=== PATIENT | female | born 1940 | race Caucasian/White ===

== ENCOUNTER 2017-02-13 18:25 | Emergency (ER) | payer MEDICARE ==
[~2017-02-13] VITALS: Ht 157.5 cm; Wt 90.9 kg
[~2017-02-13 18:25] MED LIST: ATEN50TA PO; CHOL100045 PO; FLUO20CA25 PO; HYDR-4003 PO; LIDO15CR9 TP; LORA0.5T PO; METHADONE PO; OMEP20CA11 PO; POTA99TA21 PO; SIMV20TA4 PO; SPIR25TA3 PO
[2017-02-13 18:41] VITALS: BP 179/79; PULSE 66; RESP 18; O2SAT 98
--- NOTE | 2017-02-13 19:45 | ED.REPORT ---
HPI-General Illness Date of Service February 13, 2017 ED Provider: Garett Bautista DO A 76 year old female with a history of depression, anxiety, panic attacks, spinal stimulator, hyperlipidemia, hypertension, hyperparathyroidism and right thyroidectomy presents to the ED complaining of anxiety and suicidal ideation. 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 She feels that she "can't control things" and "can't control the pain." The pt has been prescribed medication for her neuropathy pain, but these do not relieve her symptoms. She also admits to "hot and cold flashes," but denies nausea, vomiting or diarrhea. The pt took a Percocet three hours ago with minimal relief. Nursing Notes Stated Complaint: THYROID PROBELM Chief Complaint: General Complaint Nursing Notes Reviewed: Yes Allergies: Coded Allergies: duloxetine HCl (Verified Allergy, Severe, severe depression, 07/08/16) fentanyl (Verified Allergy, Severe, Anaphylaxis, 05/06/16) Fentanyl patch only amoxicillin trihydrate (Verified Allergy, Unknown, UNKNOWN, 07/08/16) clavulanic acid (Verified Allergy, Unknown, UNKNOWN, 07/08/16) amitriptyline (Verified Adverse Reaction, Severe, weakness, sweats, ) gabapentin (Verified Adverse Reaction, Severe, gas, 07/08/16) niacin (Verified Adverse Reaction, Severe, itching, flushing, 07/08/16) topiramate (Verified Adverse Reaction, Severe, severe depression, 07/08/16) Uncoded Allergies: Nonsteroidal Anti-Inflammatory Agts (Allergy, Unknown, UNKNOWN, 07/08/16) Scheduled ([Methadone ]) 15 MG PO HS Atenolol (Atenolol) 50 Mg Tablet 50 MG PO DAILY Cholecalciferol (Vitamin D3) (Vitamin D) 1,000 Unit Capsule 2,000 UNIT PO DAILY Fluoxetine (Fluoxetine) 20 Mg Capsule 20 MG PO DAILY Omeprazole (Omeprazole) 20 Mg Capsule.dr 20 MG PO BID Potassium Gluconate (Potassium) 99 Mg Tablet 99 MG PO DAILY Simvastatin (Simvastatin) 20 Mg Tablet 20 MG PO DAILY Spironolactone (Spironolactone) 25 Mg Tablet 25 MG PO DAILY Scheduled PRN Hydrocodone-Acetaminophen 5-325 mg (Hydrocodone-Acetaminophen 5-325 mg) 1 Each Tablet 1 TABLET PO BID PRN PRN For Pain Lidocaine (Lidocaine) 5 % Cream..g. 15 GM TP Q4-6H PRN PRN PRN Lorazepam (Lorazepam) 0.5 Mg Tablet 0.5 MG PO BID PRN PRN For Anxiety General Time Seen by MD: 19:44 Chief Complaint Other (Anxiety) Hx Obtained From: Patient Arrived By: Walk-in Sudden in Onset?: No Recent Healthcare: No recent hospitalization, Recent doctor visit Past Medical History Past Medical History Hyperparathyroidism Back injury Cataracts Thyroid issues Anxiety Panic attacks Reports: GERD, Hyperlipidemia, Hypertension Reports: Depression Past Surgical History Cholecystectomy Incisional hernia surgery Hysterectomy Rotator cuff Sigmoid colectomy with bilateral oopherectomy Partial thyroidectomy Cateract surgery Back surgery Smoking History Former Smoker Social History Alcohol Use: "Social" Drug Use: THC Other Social History: Good social support, , Local resident Ambulatory Status Independent Review of Systems Full Review of Systems Respiratory: Denies: Non-productive cough, Shortness of breath Musculoskeletal: Reports: Extremity pain Skin: Denies Rash Psychiatric: Reports: Suicidal ideation Complete sys rev & neg: except as marked. Physical Exam Vital Signs Vital Signs Date Time Temp Pulse Resp B/P Pulse Ox O2 Delivery O2 Flow Rate FiO2 02/13/17 22:49 36.4 68 18 139/54 98 Room Air 02/13/17 18:41 36.4 66 18 179/79 98 Room Air Initial VS: Reviewed General/Constitutional: Awake, Alert Behavior: Positive: Tearful Head / Eyes: Atraumatic, Normocephalic, PERRL, EOMI ENT: Atraumatic, Airway patent, Mucous membranes moist Neck: Atraumatic, Supple, Full range of motion Respiratory / Chest: Atraumatic, Breath sounds NL, Breath sounds = bilat, No respiratory distress Cardiovascular: Heart rate NL, Regular rhythm, Heart sounds NL Abdomen: Atraumatic, Soft, Non-tender Back: Atraumatic, Full range of motion Upper Extremities Upper Extremity / MS: Atraumatic, Full range of motion Lower Extremity / Pelvis / MS: Atraumatic, Full range of motion Skin: Atraumatic, Color NL, No rash, Warm, Dry Neurologic: Oriented X3, Speech NL, No motor deficits, No sensory deficits Psychiatric: Cognitive function NL Abnormal Mood/Affect: Positive: Anxious Suicidal Interpretation & Diagnostics Lab Results Interpretation Result Diagram: 02/13/17202402/13/172024 Test 02/13/17 20:25 02/13/17 20:55 White Blood Count 7.4th/mm3 (3.8-10.1) Red Blood Count 4.77mil/mm3 (3.90-5.20) Hemoglobin 14.9g/dL (12.0-15.6) Hematocrit 44.4% (35.0-46.0) Mean Corpuscular Volume 93.1fL (81-100) Mean Corpuscular Hemoglobin 31.2pg (27.0-35.0) Mean Corpuscular Hemoglobin Concent 33.6% (32.0-37.0) Red Cell Distribution Width 13.2% (12.3-15.4) Platelet Count 139bil/L (150-400) Neutrophils (%) (Auto) 44.1% (40-74) Lymphocytes (%) (Auto) 44.3% (14-46) Monocytes (%) (Auto) 10.2% (4-12) Eosinophils (%) (Auto) 1.2% (0-5) Basophils (%) (Auto) 0.1% (0-3) Sodium Level 143mEq/L (134-144) Potassium Level 4.4mEq/L (3.5-5.2) Chloride Level 103mEq/L (97-108) Carbon Dioxide Level 24mmol/L (18-29) Blood Urea Nitrogen 16mg/dL (8-27) Creatinine 0.67mg/dL (0.57-1.00) Estimat Glomerular Filtration Rate 123mL/min (>59) Glucose Level 84mg/dL (60-99) Calcium Level 10.3mg/dL (8.5-10.1) Total Bilirubin 0.3mg/dL (0.0-1.2) Aspartate Amino Transf (AST/SGOT) 18U/L (0-50) Alanine Aminotransferase (ALT/SGPT) 19U/L (0-32) Alkaline Phosphatase 97U/L (25-165) Troponin T 0.010ug/L (0.0-0.011) Total Protein 6.5g/dL (6.4-8.4) Albumin 4.0g/dL (3.4-5.0) Thyroid Stimulating Hormone (TSH) 0.576uIU/mL (0.450-4.500) Hold Boggs Top Tube Received (Received) Alcohols < 10mg/dL (0-10) Urine Color Yellow (YELLOW) Urine Appearance Clear (CLEAR,HAZY) Urine pH 5.5 (5.0-8.0) Urine Specific [place] 1.020 (1.003-1.035) Urine Protein Negativemg/dL (NEG,TRACE) Urine Glucose (UA) Negativemg/dL (NEGATIVE) Urine Ketones Negativemg/dL (NEGATIVE) Urine Occult Blood Negative (NEGATIVE) Urine Nitrite Negative (NEGATIVE) Urine Bilirubin Negative (NEGATIVE) Urine Urobilinogen Normalmg/dL (NORMAL) Urine Leukocyte Esterase Small (NEGATIVE) Urine RBC 0-2/hpf (0-2) Urine WBC 11-50/hpf (0-5) Urine Epithelial Cells Occasional/hpf (NONE-MOD) Urine Crystals None seen (NONE SEEN) Urine Bacteria Few/hpf (NONE-FEW) Urine Hyaline Casts None/lpf (NONE) Urine Granular Casts None seen (NONE SEEN) Urine Waxy Casts None seen (NONE SEEN) Urine Red Blood Cell Casts None seen (NONE SEEN) Urine White Blood Cell Casts None seen (NONE SEEN) Urine Mucus None seen (None Seen) Urine Trichomonas None seen (NONE SEEN) Urine Yeast None (NONE SEEN) Urinalysis Comment None Pulse Oximetry Interpretation Pulse Oximetry Interpretation: 98% on room air Pulse Oximetry: Pulse Ox normal ECG Interpretation ECG Interpretation: normal sinus rhythm with a rate of 65 no signs of hypocalcemia or hypercalcemia Time: 20:11 Interpreted by: ED physician Re-Eval/Medical Decision Med Decision/Clinical Course 76-year-old female presents profoundly anxious. She is anxious about her medical conditions upcoming surgery. She did not have any specific suicidal ideations but she felt like she needed to consult with a mental health professional. Our medical record librarian evaluated and discussed things with her. She is very pleased after this. She felt ready to go home. She is not suicidal. Anxiety symptoms were adequately treated with a dose of Ativan. She had foot pain that is chronic and she is given a dose of Percocet. She was observed. No signs were as her depression. She felt much better. She is medically stable for discharge. She is of sound mind and body. She did not wish to be admitted. I will place and a short course of Xanax that she is to take when she has extreme anxiety about her surgery. Routine sedative warnings given. Evidently she has had this in the past she states she did well with it. She is discharged with her in stable condition. Source of Hx: Old records Time of Eval: 22:34 Patient Status: Condition improved Re-Evaluation/Progress Note: Pt rechecked, who is feeling significantly better. The diagnosis and plan for discharge are discussed. The pt understands and agrees with the plan. All questions are addressed at this time. Consultation : Call Returned at: 20:28 Alarm Mechanism Adjuster: Agrees with eval, Agrees with plan Note: Spoke with social media senior associate regarding pt's case. bakery worker recommends discharge with follow up. Counseled Regarding: Diagnosis, Lab results, Need for follow-up, When/why to return to ED Discharge & Departure Primary Impression: Reaction, situational, acute, to stress Additional Impression: Anxiety Disposition: Home Discharge Condition All VS Reviewed: Yes Condition: Stable Patient Instructions: Generalized Anxiety Disorder (GEN) Additional Instructions: Keep your surgical follow up appointment. Stay with your at all times. Return if you feel like you are having any suicidal ideations or any new or worsening symptoms. You may take one Xanax every 8 hours as needed for anxiety. Do not drive or drink alcohol or take any other sedating medications while taking the Xanax. The Xanax is sedating so do not take it if you are up and about as it may increase your risk of falling. Do not take any opiates while taking the Xanax. Do not drive tonight. Return if an problems or any new or worsening symptoms. Your calcium levels are at the upper limits of normal. This needs to be followed up closely this week. Increase the natural fluids in your diet. Referrals: Gómez Owens MD (PCP) Sandroibdav Attestation Portions of this note were transcribed by José Sparrow. I, Dr. Bautista personally performed the history, physical exam and medical decision-making; I reviewed and confirmed the accuracy of the information in the transcribed note. Signed by: Sheldon Berger, 02/13/17 and 2301. copies to: Gómez Owens MD, Todd P DO February 13, 2017 19:45 JOSÉ SPARROW February 13, 2017 20:02
[2017-02-13] MEDS ORDERED: LORazepam 1 mg Tablet PO ONE (20:35)
[2017-02-13 20:51] LABS: BASOPHILS % (AUTO) 0.1 % (0-3); EOSINOPHILS % (AUTO) 1.2 % (0-5); MONOCYTES % (AUTO) 10.2 % (4-12); Mean Corpuscular Hemoglobin 31.2 pg (27.0-35.0); Mean Corpuscular Volume 93.1 fL (81-100); NEUTROPHILS % (AUTO) 44.1 % (40-74); Platelet Count 139 bil/L (150-400)
[2017-02-13 21:51] LABS: APPEARANCE,URINE CLEAR (CLEAR,HAZY); COLOR,URINE YELLOW (YELLOW); OCCULT BLOOD,URINE NEGATIVE (NEGATIVE); UROBILINOGEN,URINE NORMAL (NORMAL)
[2017-02-13 21:52] LABS: PH,URINE 5.5 (5.0-8.0)
[2017-02-13] MEDS ORDERED: oxyCODONE-Acetamin 5-325 mg Tablet PO ONE (22:05)
[2017-02-13 22:49] VITALS: BP 139/54; PULSE 68; RESP 18; O2SAT 98
[2017-02-15] MEDS ORDERED: LEVO75TA36 PO (15:33)
[2017-02-15] MEDS ORDERED: TAPE100T5 PO (15:33)
[2017-02-15] MEDS ORDERED: SPIR25TA3 PO (15:33)
[2017-02-15] MEDS ORDERED: HYDR-4003 PO (15:33)
[2017-02-15] MEDS ORDERED: CHOL10008 PO (15:33)
[2017-02-15] MEDS ORDERED: CYAN500 PO (15:33)
[2017-02-15] MEDS ORDERED: LISI10TA PO (15:33)
[2017-02-15] MEDS ORDERED: LIDO5CRE17 TOPICAL (15:33)
[2017-02-15] MEDS ORDERED: OMEP20TA86 PO (15:33)
[2017-02-15] MEDS ORDERED: CALC-952 PO (15:33)
[2017-02-15] MEDS ORDERED: FLUO20TA28 PO (15:33)
[2017-02-15] MEDS ORDERED: SIMV20TA4 PO (15:33)
[2017-02-15] MEDS ORDERED: GABA-500 PO (15:33)
== END 2017-02-13 22:49 | disposition home or self-care (01) ==
LOC: SED 18:25
DX: F43.0 Acute stress reaction (principal); F41.9 Anxiety disorder, unspecified; E78.5 Hyperlipidemia, unspecified; I10 Essential (primary) hypertension; E21.3 Hyperparathyroidism, unspecified; K21.9 Gastro-esophageal reflux disease without esophagitis; Z87.891 Personal history of nicotine dependence; Z88.1 Allergy status to other antibiotic agents; Z88.8 Allergy status to other drugs, medicaments and biological substances
CPT/HCPCS: 36415; 80053; 81001; 81002; 84443; 84484; 85025; 93005; 99284; G0480

== ENCOUNTER 2017-02-22 08:34 | Day surgery (SDC) | payer MEDICARE ==
--- NOTE | 2017-02-15 16:22 | PCM.ANEPRE ---
Anesthesia Pre-Op Review Anesthesia Recommendations: Proceed with Procedure Chart Reviewed by: Andrews Dent MD, MD February 15, 2017 16:22
[2017-02-22] VITALS (9 sets, daily range): BP systolic 144–186; BP diastolic 52–84; PULSE 63–106; RESP 13–20; O2SAT 95–100
[~2017-02-22] VITALS: Ht 157.5 cm; Wt 97.6 kg
[2017-02-22] MEDS: Lactated Ringer's 1,000 ML IV SCH ×3 (05:00→11:29)
[~2017-02-22 08:34] MED LIST changes: -ATEN50TA PO; +CALC-952 PO; -CHOL100045 PO; +CHOL10008 PO; +CYAN500 PO; -FLUO20CA25 PO; +FLUO20TA28 PO; +GABA-500 PO; +LEVO75TA36 PO; -LIDO15CR9 TP; +LIDO5CRE17 TOPICAL; +LISI10TA PO; -LORA0.5T PO; +LORazepam 1 mg Tablet PO PRN; -METHADONE PO; -OMEP20CA11 PO; +OMEP20TA86 PO; -POTA99TA21 PO; +TAPE100T5 PO
[2017-02-22] MEDS ORDERED: Propofol 10,000 mCg/mL 20 mL Inj ONE (08:35)
[2017-02-22] MEDS ORDERED: Dexamethasone 4 mg/mL Inj ONE (08:35)
[2017-02-22] MEDS ORDERED: Succinylcholine Chloride 20 mg/mL 5 mL Inj ONE (08:35)
[2017-02-22] MEDS ORDERED: fentaNYL-PF 50 mCg/mL 2 mL Inj ONE (08:35)
[2017-02-22] MEDS ORDERED: Ondansetron 2 mg/mL 2 mL Inj ONE (08:35)
--- NOTE | 2017-02-22 11:16 | PCM.HPANE ---
Patient Data Date of Service: February 22, 2017 (1111) Surgeon Admitting Provider: Attending Provider:Aren Thornton MD Primary Care Physician:Gómez Owens MD Other Provider:Shiv Thurston Anesthesia Reason for Visit Primary Hyperparathyroidism, Mulitnodular Goiter Ht/WT & BMI Height (Feet): 5 Height (Inches): 2.00 Weight (Kilograms): 97.500 Body Mass Index 39.00 Allergies Coded Allergies: duloxetine HCl (Verified Allergy, Severe, severe depression, 02/22/17) fentanyl (Verified Allergy, Severe, Anaphylaxis, 02/22/17) Fentanyl patch only amoxicillin trihydrate (Verified Allergy, Unknown, UNKNOWN, 02/22/17) clavulanic acid (Verified Allergy, Unknown, UNKNOWN, 02/22/17) amitriptyline (Verified Adverse Reaction, Severe, weakness, sweats, ) gabapentin (Verified Adverse Reaction, Severe, gas, 07/08/16) niacin (Verified Adverse Reaction, Severe, itching, flushing, 07/08/16) topiramate (Verified Adverse Reaction, Severe, severe depression, 07/08/16) metoprolol (Verified Adverse Reaction, Intermediate, BRADYCARDIA, 02/22/17) Past Anesthesia History Anesthesia History: Positive for:: Anesthesia Reactions (hx of awake intubation ), Difficult Intubation (hx of awake intubation "crooked esophagus") , Denies:: Abnormal Airway, Fam Anesthesia Reaction, Fam Malignant Hypertherm, Malignant Hyperthermia Diabetes History Hx Diabetes?: No Current Bedside Blood Glucose: 98 MRSA MRSA: No Medications Hypertension Medication: Yes Home Meds Incl Beta Rafael: No Reported Medications Cholecalciferol (Vitamin D3) (Vitamin D3)1,000 Unit Tab.chew2,000 Unit PO DAILY 02/15/17 Cyanocobalamin (Vitamin B12)500 Mcg [id number] Mcg PO DAILY 02/15/17 Spironolactone 25 Mg Qlmveu59 Mg PO DAILY #30 TABLET Ref 0 02/15/17 Simvastatin 20 Mg Gevyuf22 Mg PO HS Ref 0 02/15/17 Omeprazole 20 Mg Tablet.dr20 Mg PO DAILY 02/15/17 Tapentadol (Nucynta)100 Mg Czdvzn139 Mg PO BID 02/15/17 Lisinopril 10 Mg Sgmktq79 Mg PO DAILY 30 Days Ref 0 02/15/17 Lidocaine Cream 5 Gm Cream..g.1 Applic TOPICAL PRN For Pain 02/15/17 Levothyroxine (Levoxyl)75 Mcg Pganvp59 Mcg PO DAILY Ref 0 02/15/17 Hydrocodone-Acetaminophen 5-325 mg 1 Each Tablet1 Tablet PO Q12H PRN For Pain Ref 0 02/15/17 Fluoxetine 20 Mg Eavpvt61 Mg PO DAILY Ref 0 02/15/17 Calcium Carbonate/Vitamin D3 (Calcium 500 mg Chewable Tablet)1 Each Tab.chew1 Each PO DAILY 02/15/17 Discontinued Reported Medications Gabapentin 100 Mg Jekrfpe652 Mg PO TID 30 Days Ref 0 02/15/17 Cholecalciferol (Vitamin D3) (Vitamin D)1,000 Unit Capsule2,000 Unit PO DAILY # 1 BOTTLE Ref 0 07/08/16 Spironolactone 25 Mg Jigxgc62 Mg PO DAILY #30 TABLET Ref 0 07/08/16 Simvastatin 20 Mg Qoqnti96 Mg PO DAILY Ref 0 07/08/16 [Methadone ] No Conflict Check15 Mg PO HS 07/08/16 Hydrocodone-Acetaminophen 5-325 mg 1 Each Tablet1 Tablet PO BID PRN For Pain Ref 0 07/08/16 Atenolol 50 Mg Drypql42 Mg PO DAILY #30 TABLET Ref 0 07/08/16 Fluoxetine 20 Mg Alqfpju36 Mg PO DAILY Ref 0 05/05/16 Lidocaine 5 % Cream..g.15 Gm TP Q4-6H PRN PRN 05/05/16 Lorazepam 0.5 Mg Tablet0.5 Mg PO BID PRN For Anxiety Ref 0 05/05/16 Omeprazole 20 Mg Capsule.dr20 Mg PO BID Ref 0 05/05/16 Potassium Gluconate (Potassium)99 Mg Wzrjhf74 Mg PO DAILY 05/05/16 History History of ENT Problems?: Yes HEENT History: Positive for:: Cataracts (bilateral) Difficult Intubation (hx of awake intubation "crooked esophagus") Sinus Problem Denies:: Abnormal Airway Dysphagia Hearing Problem Denture Type: Full- Upper Teeth Condition: Missing Teeth Hx of Heart Problems?: Yes Cardiovascular History: Positive for:: Chest Pain (2003,2004,2009,2013 DEEMED NON-CARDIAC) Edema (feet) Hypertension Denies:: AICD Cardiac Surgery Congestive Heart Failure Heart Murmur Irregular Heartbeat Pacemaker Thrombophlebitis Valvular Heart Disease Hx of Respiratory Problem?: Yes Respiratory History: Denies:: Asthma COPD Emphysema Oxygen Administration Tuberculosis Use of C-PAP Machine (melanie+ refuses cpap sleep study 08/2015-10/2015) Hx Neurologic Problems?: Yes Neurological History: Positive for:: Headaches Denies:: Alzheimer's Disease CVA Dementia Dizziness Multiple Sclerosis Parkinson's Disease Seizures Hx of GI Problems?: Yes Other GI Pertinent History: hx of colectomy Hx of Problems?: Yes Genitourinary History: Denies:: Kidney Stones Urinary Tract Infection Female Hx: Positive for:: Problems with Breasts? (hx of benign bx) Denies:: Currently Endometriosis Pelvic Inflammatory Skin History: Positive for:: History Skin Disorders? (eczema) Denies:: Pressure Ulcers Hx Musculoskeletal Problems?: Yes Musculoskeletal History: Positive for:: Back Injury (prior hx back surgery, currently has SCS in place) Degenerative Joint Joint Replacement (right tka) Musculoskeletal Trauma (prior hx rotator cuff) Hx of Psycho/Social Problems?: Yes Psycho Social History: Positive for:: Anxiety (hx of panic attacks) Hx Depression Denies:: Bipolar Disorder Hx Surgeries?: Yes (lami, colectomy, hyst, héctor, total knee, thyroid lobectomy , scs) Hx Any Other Health Problems?: Yes Other History: Positive for:: Endocrine Disease Hospitalization Thyroid Disease (current admission problem-completion thyroid, parathyroid) Denies:: Cancer History Blood Transfusions: Denies:: Blood Transfuse Reaction Blood Transfusions Hx Diabetes: NoBedside Blood Glucose: 98 Hx Alcohol Use: YesAlcoholic Drinks Per Day: occasional- not for last monthHx Substance Use: No Smoking Status: Former Smoker Have You Smoked inLast 12 mo: No Stop/Bang S-Snoring: Do You Snore Loudly: Yes T-Tired: feel tired, fatigued: Yes O-Obsered: Observed not breath: No P-Blood Pressure: treated: Yes B- Body Mass Index > 35 kg/m2: Yes A- Age over 50: Yes N- Neck Large Circumference: Yes G- Gender Male: No MELANIE Total Score: 6 Risk Assessment Category Category 1A: Patient has history of documented sleep apnea, and HAS NOT received any narcotic, sedative or anesthesia administration during this stay. Category 1B: Patient has history of documented sleep apnea, and HAS received any narcotic , sedative or anesthesia administration during this stay Category 2: Patient has SUSPECTED Obstructive Sleep Apnea, and HAS received any narcotic , sedative or anesthesia administration during this stay. Category 3: Patient has SUSPECTED Obstructive Sleep Apnea and HAS NOT received narcotic, sedative or anesthesia administration during this stay. Category 4: Outpatient in Procedural Areas with known sleep apnea or who screen positive for High Risk via the STOP/BANG questionnaire. Exam Exam Vital Signs Vital Signs Date Time Temp Pulse Resp B/P Pulse Ox O2 Delivery O2 Flow Rate FiO2 02/22/17 08:55 35.1 63 18 144/52 95 Room Air General Appearance: Alert, Oriented X3, Cooperative HEENT/AIRWAY: MP 2 Lungs: Clear to Auscultation Heart: Exam Unremarkable Meds/Labs/Diagnostics Admission Meds Current Medications Lactated Ringer's (Lr) 1,000 ml @ 120 mls/hr Q8H20M IV Last administered on t 09:07; Start 02/22/17 at 05:00; Stop 02/22/17 at 13:19 Bedside Blood Glucose: 98 Plan Impression Patient chart reviewed, patient interviewed and anesthestic plan with risks, benefits, and alternatives discussed, and informed consent obtained. NPO per Anesth. Guidelines: Yes ASA Physical Status: ASA3 Severe Disease Anesthetic Plan: GA Bene/Risks/Altern/Consents: Yes HP Complete Prior to Induction: Yes Rashid Coleman MD February 22, 2017 11:16
[2017-02-22] MEDS ORDERED: Bupivacaine-MPF 0.5% 30 mL Inj INFILTRATE ONE (12:00)
[2017-02-22] MEDS ORDERED: MetoCLOpramide 5 mg/mL 2 mL Inj IVPUSH PRN (14:55)
[2017-02-22] MEDS ORDERED: Ondansetron 2 mg/mL 2 mL Inj IVPUSH PRN ×2 (14:55→15:30)
--- NOTE | 2017-02-22 15:09 | PCM.ANEP1 ---
Post Anesthesia PACU Phase 1 Assessment Vital Signs Vital Signs Date Time Temp Pulse Resp B/P Pulse Ox O2 Delivery O2 Flow Rate FiO2 02/22/17 08:55 35.1 63 18 144/52 95 Room Air Anesthetic Administered: GA Level of Alertness: Awake, talking MARCUM's with Equal Strength: Yes Pain: No Nausea or Vomiting: No CV Function & Hydration Stable: Yes Airway Device: NONE Oxygen Delivery: Simple Mask Lungs: Clear to Auscultation Dermatome Level: Full Sensation Summary UNEVENTFUL GA PACU Phase 2 Assessment Complications: No Follow up Care: No Patient Instructions Provided: N/A Rashid Coleman MD February 22, 2017 15:09
[2017-02-22] MEDS ORDERED: Lactated Ringer's 500 ML IV PRN (15:29)
[2017-02-22] MEDS ORDERED: Lactated Ringer's 1,000 ML IV SCH (15:29)
[2017-02-22] MEDS ORDERED: EPHEDrine Sulfate 50 mg/mL Inj IVPUSH PRN (15:30)
[2017-02-22] MEDS ORDERED: HYDROmorphone 1 mg/mL Inj IVPUSH PRN (15:30)
[2017-02-22] MEDS ORDERED: Dexamethasone 4 mg/mL Inj IVPUSH PRN (15:30)
[2017-02-22] MEDS ORDERED: fentaNYL-PF 50 mCg/mL 2 mL Inj IVPUSH PRN (15:30)
[2017-02-22] MEDS ORDERED: Phenylephrine 10,000 mCg/mL Inj IVPUSH PRN (15:30)
--- NOTE | 2017-02-22 15:32 | PCM.SURGOP ---
Surgical Operative Report Date of Service: February 22, 2017 Pre Operative Diagnosis Hyperparathyroidism, multinodular goiter, residual right thyroid tissue after previous right thyroid lobectomy Post Operative Diagnosis Same Procedure: Completion thyroidectomy, parathyroidectomy exploration Surgeon and Mobile Ui/Ux Designer: Surgeon: Aren Thornton MD Assistants: Milly Ortiz M.D.; Otis Peterson PA-C Indication for Procedure 76-year-old woman whose main complaint was peripheral neuropathy. She also has undergone what was described as a right thyroid lobectomy in the past for a goiter. She had mild hyperparathyroidism, with a PTH of 66, and a calcium of 10.3. Her imaging studies were inconclusive regarding abnormal parathyroid glands. She did have significant residual right thyroid tissue superiorly measuring 2.7 cm. She had a 3.4 cm thyroid nodule in the isthmus, that underwent fine-needle aspiration, which came back benign, [place] II. She had compressive symptoms in the neck. After discussion of risks and benefits, she agreed to proceed with completion thyroidectomy and parathyroid exploration. Findings: A parathyroid adenoma was not identified. There was very dense scar tissue throughout the entire neck, including on the left side. Completion thyroidectomy was performed, including removal of all remaining right superior thyroid tissue. Both recurrent laryngeal nerves were visualized and preserved. Normal parathyroid glands were visualized on the left side both superiorly and inferiorly, which were preserved. Despite extensive exploration, and adenoma on the right side or elsewhere could not be identified. Procedure Details After smooth induction of general endotracheal anesthesia, she was placed in the modified beachchair position with the neck extended, and was prepped and draped in wide sterile fashion. A procedural pause was performed according to the SCOAP checklist, and all were found to be in agreement. Her prior transverse neck incision was reopened sharply, and dissection was carried down through the subcutaneous tissue until the platysma muscle was divided. Subplatysmal skin flaps were raised superiorly and inferiorly. The median raphae was difficult to identify, because there was dense scar tissue. The right strap muscles were elevated off the thyroid isthmus. This was very adherent, and there was no visible normal tissue planes on the right. I elected to explore the left side first in that setting, given that she had compressive symptoms on the left, and the plan was to perform completion left thyroid lobectomy with isthmusectomy. The left strap muscles were sequentially elevated off the underlying left thyroid lobe and isthmus. This dissection was also quite difficult because of adhesions. Ultimately, the left middle thyroid vein was identified, and divided with the LigaSure device. A blood sample was drawn from the left internal jugular vein, and sent for PTH, which came back at 57. The left superior pole was taken down gradually by dividing the branches of the left superior thyroid artery and vein with the LigaSure device. Inferiorly, there was an exophytic nodule, which actually became disconnected from the remainder of the left thyroid lobe during retraction, so the ultimate pathology specimen will appear somewhat piecemeal. The left inferior parathyroid gland was visualized, along with its blood supply coming off the inferior thyroid artery. This was normal, and it was preserved. The left ligament of [place] was divided with the LigaSure device. The left recurrent laryngeal nerve was visualized and preserved. Superiorly, the left superior parathyroid gland was visualized, which looked completely normal, so it was left alone. The thyroid isthmus was dissected free from the peritracheal tissues anteriorly. The left thyroid lobe and isthmus were dissected off the trachea, oriented with suture, and sent for permanent pathology. Another PTH sample was drawn and sent, which came back at 69. In the meantime, the right side of the neck was explored. The right recurrent laryngeal nerve was visualized and preserved. The right inferior thyroid artery was visualized. The right inferior parathyroid gland could not be visualized. Adhesions superiorly were very dense. Ultimately, the right strap muscles were divided superiorly, and this allowed visualization of the remaining right superior thyroid tissue. The superior pole was taken down with the LigaSure device. All remaining right thyroid tissue was removed, down to the area of previous clips marking the area of division. That tissue was sent for permanent pathology. There was no evidence of an obvious parathyroid gland attached to any of the thyroid tissue that was removed. The entire tracheoesophageal groove was evaluated, the esophagus was bluntly retracted anteriorly, and the retroesophageal space was evaluated, the thymic tissue was evaluated, the carotid sheath was inspected on both sides but not opened, and ultimately a parathyroid adenoma could not be definitively identified. Because of the dense scar tissue in the neck, I felt that further dissection was quite dangerous, and elected to stop. Hemostasis was adequate. The strap muscles were reapproximated with interrupted 3-0 Vicryl suture. The platysma muscle was reapproximated with interrupted 3-0 Vicryl suture. The skin incision was closed with a running 4-0 Monocryl subcuticular stitch. Dermabond was applied to the skin as a dressing. At the end of the case all needle and sponge counts were correct 2. She was awakened from anesthesia without difficulty, and taken to the recovery room in satisfactory condition, having tolerated the procedure well. Her voice was normal in the recovery room. Another PTH sample was drawn in the recovery room. Complications There were no periprocedural complications identified. Surgical Specimen Removed: Yes Specimen sent to Pathology: Yes Surgical Specimen description: Left thyroid lobe and isthmus. Remaining right thyroid tissue. Anesthetic Plan: GA Grafts, Implants: None Output, Estimated Blood Loss: 30 Blood Administration during hankins: No Drains: None Catheters: None copies to: Curtis Rose MD; Gómez Owens MD, Joshua D MD February 22, 2017 15:32
--- NOTE | 2017-02-22 17:56 | NUR ---
ADMIT Patient came up to room via OR [facility] at 1555 and transferred onto bed with minimal assistance. Patient denied chest pain, SOB, N, V, and stated "I don't have much pain I just feel bit hoarse, but I expect that". Patient was on room air, fluids were running, but patient was saline locked. Assisted to bedside commode to void one person assist, and was unsteady on her feet stating she felt a little dizzy. Assisted patient back to bed, educated patient on keeping the HOB at 30 degrees and reporting to staff if she starts to feel any swelling in her neck. Incision is well approximated and Dermabond is present. Patients belongings came up with patient from OR and patients is in room. Clear liquid diet initiated for patient and is being tolerated well. SCD's placed on patient, jong alarm in place, call light within reach, patient oriented to room. Hourly rounding in place.
--- NOTE | 2017-02-22 18:35 | NUR ---
Meds from Home Sent down 2 medications from home to pharmacy, B-12 and Nucynda. Patient states they both help with neuropathy.
[2017-02-22] MEDS: HYDROcodone-APAP 5-325 mg Tablet PO PRN (21:11)
[2017-02-23 00:32] VITALS: BP 132/72; PULSE 79; RESP 20; O2SAT 95
[2017-02-23 01:23] LABS: APPEARANCE,URINE CLEAR (CLEAR,HAZY); COLOR,URINE STRAW (YELLOW); OCCULT BLOOD,URINE NEGATIVE (NEGATIVE); PH,URINE 6.5 (5.0-8.0); UROBILINOGEN,URINE NORMAL (NORMAL)
--- NOTE | 2017-02-23 04:11 | NUR ---
Neuropathy/Pain Pt has neuropathy in hands and severe in feet at baseline. Pt reports that she takes B12 2000mcg BID and it has almost eliminated the neuropathy. Current orders not reflecting. Phoned customer operations intern surgeon and he ordered according to Pt current meds. Administered and Pt had relief and was able to sleep. She stated the morphine that was given earlier was not effective. She denies pain to throat incision, states only her throat is scratchy. CMS intact, Chvosteks sign negative.
[2017-02-23] MEDS: HYDROcodone-APAP 5-325 mg Tablet PO PRN (04:27)
[2017-02-23] MEDS ORDERED: Pantoprazole 40 mg ER24 Tablet PO SCH (06:30)
--- NOTE | 2017-02-23 06:49 | PCM.DISURG ---
Surgical Discharge Instruction Date of Service February 23, 2017 Dates of Hospitalization Date of Hospital Admission Providers Admitting Physician: Primary Care Physician: Gómez Owens MD Attending Physician: Aren Thornton MD Discharge Diagnosis Discharge Diagnosis multinodular goiter, hyperparathyroidism Post Operative diagnosis Same Diet Discharge Diet: No restrictions Activity Discharge Activity-General: No restrictions Dressing and Incisional Care Dressing Instructions: Dermabond will peel off gradually Hygiene: May shower Follow Up Plan Follow Up Plan with Dr. Thornton in surgery clinic in 2 weeks Call your provider for: Fever, Discharge @ incision, pus discharge Aren Thornton MD February 23, 2017 06:48
[2017-02-23] MEDS ORDERED: HYDR-4003 PO (06:50)
[2017-02-23] MEDS ORDERED: LEVO125T6 PO (06:50)
[2017-02-23] MEDS ORDERED: TAPENTADOL 100 MG PO SCH (08:30)
[2017-02-23 09:18] VITALS: BP 144/77; PULSE 79; RESP 20; O2SAT 96
--- NOTE | 2017-02-23 09:44 | PROG NOTE ---
[address] [address] PROGRESS NOTE PATIENT: CHRISTIANE STEEN : 1940 MR#: [id number] ADMIT: 02/22/2017 JOB ID: [id number] DATE: 02/23/2017 SUBJECTIVE: The patient is seen in followup. She had a good night overall and does not complain of any pain whatsoever in the neck. Her main complaint overnight with neuropathy in her feet, relieved by taking vitamin B12. She was on liquids overnight and did not try swallowing any solid food. OBJECTIVE: Temperature 36.9, pulse 79, blood pressure 132/72, saturation 95% on room air. General: She is resting in bed in no acute distress. Neck is soft with minimal amount of bruising of the transverse neck incision. Her voice is normal. ASSESSMENT AND PLAN: A 76-year-old woman, postoperative day one, status post completion thyroidectomy after previous right partial thyroid lobectomy, and parathyroid exploration without identification of a parathyroid adenoma. She is doing well clinically. She can be discharged to home today. Her dose of levothyroxine has been increased to 125 mcg daily. She will follow up with me in surgery clinic in two weeks.
--- NOTE | 2017-02-23 10:11 | NUR ---
Discharge Pt DC'ing home with her via private vehicle. Pain adequately controlled in neck with safe swallow observed. Neuropathy pain is also adequately controlled with Vit B12 and Vicodin. Home medications returned from pharmacy; confirmed [facility] in [place] had RX for Levothyroxine. Pt will call to schedule her follow up appointment with Dr. Thornton.
--- NOTE | 2017-02-23 12:32 | PCM.DC.SUR ---
Discharge Summary Date of Service: Date of Hospital Admission: 02/22/2017 Date of Operation(s): 02/22/2017 Date of Discharge: February 23, 2017 at 10:15 Diagnosis at Time of Discharge Primary diagnoses: 1. Hyperparathyroidism, primary 2. Multinodular goiter, 3. Residual right thyroid tissue after previous right thyroid lobectomy Other chronic conditions: 1. Anxiety 2. Benign hepatitis 3. Carpal tunnel syndrome 4. Cataract 5. Chronic back pain 6. Colon adenoma 7. Constipation 8. Diverticulosis 9. Dyspepsia 10. Eczema of the hands 11. Gastritis 12. GERD 13. Glaucoma 14. Hyperlipidemia 15. Hypertension 16. Osteomyelitis of the hip 17. Rosacea 18 morbid obesity, BMI 39.4 19. Obstructive sleep apnea 20. Anxiety and depression 21. Postmenopausal atrophic vaginitis 22. Chronic pain syndrome 23. Neuropathies Problems: Operation 1. Completion thyroidectomy 2. Parathyroidectomy exploration Brief History and Physical: The patient is a 76-year-old woman whose main complaint was peripheral neuropathy. She also had undergone what was described as a right thyroid lobectomy in the past for a goiter. She had mild hyperparathyroidism, with a PTH of 66, and a calcium of 10.3. Her imaging studies were inconclusive regarding abnormal parathyroid glands. She did have significant residual right thyroid tissue superiorly measuring 2.7 cm. She had a 3.4 cm thyroid nodule in the isthmus, that underwent fine-needle aspiration, which came back benign, [place] II. She had compressive symptoms in the neck. Consultants: None Hospital Course: The patient was admitted and underwent the above-mentioned operation without complication. She was stable for discharge the following morning. At the time of discharge her neck wound was dry and intact, and she had no neck edema. She had no voice changes. Postsurgical PTH was 56. Pathology: Pending Disposition: The patient was discharged home on her first postsurgical day. Follow-up Plan: She will follow-up in the office with Dr. Thornton in 2 weeks. Calcium Carbonate/Vitamin D3 (Calcium 500 mg Chewable Tablet) 1 Each Tab.chew 1 EACH PO DAILY (Reported) Cholecalciferol (Vitamin D3) (Vitamin D3) 1,000 Unit Tab.chew 2,000 UNIT PO DAILY (Reported) Cyanocobalamin (Vitamin B12) 500 Mcg Tablet 500 MCG PO DAILY (Reported) Fluoxetine (Fluoxetine) 20 Mg Tablet 20 MG PO DAILY (Reported) Hydrocodone-Acetaminophen 5-325 mg (Hydrocodone-Acetaminophen 5-325 mg) 1 Each Tablet 1 TABLET PO Q12H PRN PRN For Pain (Reported) Hydrocodone-Acetaminophen 5-325 mg (Hydrocodone-Acetaminophen 5-325 mg) 1 Each Tablet 1-2 TABLET PO Q4H PRN PRN For Moderate Pain Levothyroxine (Levothyroxine) 125 Mcg Tablet 125 MCG PO DAILYAC Lidocaine Cream (Lidocaine Cream) 5 Gm Cream..g. 1 APPLIC TOPICAL PRN For Pain ( Reported) Lisinopril (Lisinopril) 10 Mg Tablet 10 MG PO DAILY (Reported) Omeprazole (Omeprazole) 20 Mg Tablet.dr 20 MG PO DAILY (Reported) Simvastatin (Simvastatin) 20 Mg Tablet 20 MG PO HS (Reported) Spironolactone (Spironolactone) 25 Mg Tablet 25 MG PO DAILY (Reported) Tapentadol (Nucynta) 100 Mg Tablet 100 MG PO BID (Reported) copies to: Gómez Owens MD, Fred H PA-C February 23, 2017 12:32
--- NOTE | 2017-02-25 10:29 | PATH ---
SURGICAL PATHOLOGY Attending Physician:Marylin Walker CASE STATUS: Signed Out PATIENT NAME: CHRISTIANE STEEN PID: [id number] : 1940 DATE COLLECTED:02/22/2017 00:00 SPECIMEN: 1: Thyroid, Lobectomy 2: Thyroid, Lobectomy CLINICAL HISTORY: MULTI NODULAR GOITER PRIMARY HYPERPARATHYROIDISM, PLEASE CHECK FOR PARATHYROIDS ON ALL SPECIMEN 1). LEFT THYROID LOBE AND ISTHMUS 2). REMAINING RIGHT THYROID TISSUE FINAL DIAGNOSIS: 1. 2.LEFT THYROID LOBE AND ISTHMUS: MULTIPLE BENIGN HYPERPLASTIC NODULES PRESENT WITHIN BOTH SPECIMENS. NEGATIVE FOR EVIDENCE OF PARATHYROID TISSUE. NEGATIVE FOR ATYPIA AND MALIGNANCY. ICD10 E04.2 GROSS DESCRIPTION: The specimens are received in formalin, labeled with the patient's name, and sublabeled as the following: (1) left thyroid lobe and ithmus; (2) remaining right thyroid tissue. (1) The specimen consists of a thyroid gland lobe (35.4 g, largest intact piece-6.5 x 6.0 x 2.3 cm) received in multiple pieces. The specimen cannot be oriented. The parenchyma has been replaced with diffuse variegated semi-translucent nodular (0.1 cm-1.5 cm) tissue. No normal parenchyma is identified. Ink code: blue-capsule. Section code: (1A-1D) largest piece, serially sectioned, quality assurance representative; (1E, 1F) one quality assurance representative from each smaller piece. Additional sections: (1G-1J) thyroid tissue, quality assurance representative. 02/24/17 (2) The specimen consists of thyroid tissue (3.9 g, 3.0 x 2.0 x 1.0 cm). The specimen cannot be oriented. The tissue is variegated semi-translucent and nodular (0.1 cm-1.0 cm). A scant amount of normal parenchyma is identified. Ink code: blue-capsule. Section code: (2A) thyroid tissue, serially sectioned, quality assurance representative. 02/23/17 Additional sections: (2B-2D thyroid tissue. Specimen entirely submitted. 02/24/17 MICRO DESCRIPTION: Sections from parts 1 and 2 are from thyroid tissue. There are multiple hyperplastic nodules present in both specimens. In the material from part 1 there is one area in which the periphery of one of the hyperplastic nodules consists of very small follicular type cells. These have uniform small dark nuclei, and since parathyroid tissue can have this appearance in some situations, immunohistochemistry is performed. Immunohistochemistry Results: TTF-1:Cells in question are positive, thus indicating their thyroid origin Synaptophysin: Cells in question are negative, thus ruling out parathyroid tissue There is no evidence for malignancy or significant atypia in any of the material. This test was developed and its performance characteristics determined by [facility]. It has not been cleared or approved by the U. [place]. Food and Drug Administration. The FDA has determined that such clearance or approval is not necessary. This test is used for clinical purposes. It should not be regarded as investigational or for research. ICD-9 CODES: CPT CODES: 1: 16115, 70944, 36103 2: 76179 Electronically Signed Out Roman See MD [facility] Pathology [facility] [address], [place] [address] Technical component performed at [facility], [address], [place], [address]
== END 2017-02-23 10:15 | disposition home or self-care (01) ==
LOC: SAS 08:34 → OSC 15:58 → SAS 02-23 10:15
PROVIDERS: ATTEND Student in an Organized Health Care Education/Training Program
DX: E21.0 Primary hyperparathyroidism (principal); E05.20 Thyrotoxicosis with toxic multinodular goiter without thyrotoxic crisis or storm; I10 Essential (primary) hypertension; E78.5 Hyperlipidemia, unspecified; G47.33 Obstructive sleep apnea (adult) (pediatric); M54.16 Radiculopathy, lumbar region; F41.8 Other specified anxiety disorders; G89.4 Chronic pain syndrome; K21.9 Gastro-esophageal reflux disease without esophagitis; E66.9 Obesity, unspecified; Z68.38 Body mass index [BMI] 38.0-38.9, adult; Z86.010 Personal history of colon polyps; Z87.891 Personal history of nicotine dependence
CPT/HCPCS: 36415; 60260; 60500; 81000; 83970; J0330; J1100; J2250; J2270; J2405; J3010; J7120

== ENCOUNTER 2017-03-07 15:57 | Emergency (ER) | payer MEDICARE ==
[~2017-03-07] VITALS: Ht 157.5 cm; Wt 90.9 kg
[~2017-03-07 15:57] MED LIST changes: -GABA-500 PO; +LEVO125T6 PO; -LEVO75TA36 PO; -LORazepam 1 mg Tablet PO PRN
[2017-03-07 15:59] VITALS: BP 145/61; PULSE 68; RESP 20; O2SAT 99
--- NOTE | 2017-03-07 16:59 | ED.REPORT ---
HPI-General Illness Date of Service Mar 07, 2017 ED Provider: Dr. Chiu 76 y/o female with a hx of neuropathy, hyperlipidemia, hypertension, hyperparathyroidism and right thyroidectomy presents to the ED complaining of fatigue, onset three days ago. She states "I just have no energy at all". The pt had a thyroid surgery two weeks ago. Associated sx include "freezing chills" , fever, malaise, cough accompanied by chest pain, mild headache and decreased appetite. She denies vomiting, diarrhea, dysuria and neck pain post surgery. Nursing Notes Stated Complaint: WEAKNESS AND COUGH/SENT FROM URGENT CARE Chief Complaint: General Complaint Nursing Notes Reviewed: Yes Allergies: Coded Allergies: duloxetine HCl (Verified Allergy, Severe, severe depression, 02/22/17) fentanyl (Verified Allergy, Severe, Anaphylaxis, 02/22/17) Fentanyl patch only amoxicillin trihydrate (Verified Allergy, Unknown, UNKNOWN, 02/22/17) clavulanic acid (Verified Allergy, Unknown, UNKNOWN, 02/22/17) amitriptyline (Verified Adverse Reaction, Severe, weakness, sweats, ) gabapentin (Verified Adverse Reaction, Severe, gas, 07/08/16) niacin (Verified Adverse Reaction, Severe, itching, flushing, 07/08/16) topiramate (Verified Adverse Reaction, Severe, severe depression, 07/08/16) metoprolol (Verified Adverse Reaction, Intermediate, BRADYCARDIA, 02/22/17) Scheduled Calcium Carbonate/Vitamin D3 (Calcium 500 mg Chewable Tablet) 1 Each Tab.chew 1 EACH PO DAILY Cholecalciferol (Vitamin D3) (Vitamin D3) 1,000 Unit Tab.chew 2,000 UNIT PO DAILY Cholecalciferol (Vitamin D3) (Vitamin D3) 1,000 Unit Tab.chew 2,000 UNIT PO DAILY Fluoxetine (Fluoxetine) 20 Mg Tablet 20 MG PO DAILY Levothyroxine (Levoxyl) 75 Mcg Tablet 75 MCG PO DAILY Lisinopril (Lisinopril) 10 Mg Tablet 10 MG PO DAILY Methadone (Methadone) 5 Mg Tablet 5 MG PO Q12HR Omeprazole (Omeprazole) 20 Mg Tablet.dr 20 MG PO BID Simvastatin (Simvastatin) 20 Mg Tablet 20 MG PO HS Spironolactone (Spironolactone) 25 Mg Tablet 25 MG PO DAILY Scheduled PRN Alprazolam (Alprazolam) 0.5 Mg Tablet 0.5 MG PO BID PRN PRN For Anxiety Hydrocodone-Acetaminophen 5-325 mg (Hydrocodone-Acetaminophen 5-325 mg) 1 Each Tablet 1 TABLET PO Q12HR PRN PRN For Pain Lidocaine Cream (Lidocaine Cream) 5 Gm Cream..g. 1 APPLIC TOPICAL PRN For Pain General Time Seen by MD: 16:58 Chief Complaint Other (Fatigue) Hx Obtained From: Patient Arrived By: Walk-in Sudden in Onset?: No (3) Onset Occurred: 3 days ago Symptom Duration: Since onset Location: : Head Quality: Painful Radiation: : Does not radiate Severity: Current: Mild Severity: Maximum: Mild Recent Healthcare: Recent doctor visit, Previous surgery Similar Sx Previous: No Past Medical History Past Medical History Hyperparathyroidism Back injury Cataracts Thyroid issues Anxiety Panic attacks Reports: GERD, Hyperlipidemia, Hypertension Reports: Depression Past Surgical History Cholecystectomy Incisional hernia surgery Hysterectomy Rotator cuff Sigmoid colectomy with bilateral oopherectomy Partial thyroidectomy Cateract surgery Back surgery Smoking History Former Smoker Social History Alcohol Use: "Social" Drug Use: THC Other Social History: Good social support, , Local resident Ambulatory Status Independent Review of Systems Reports: Decreased appetite Full Review of Systems Constitutional: Reports: Chills, Fatigue, Fever, Malaise Respiratory: Reports: Non-productive cough Cardiovascular: Reports: Chest pain (only with cough) GI: Denies: Diarrhea, Vomiting Female: Denies: Dysuria Musculoskeletal: Denies: Neck pain Complete sys rev & neg: except as marked. Physical Exam Vital Signs Vital Signs Date Time Temp Pulse Resp B/P Pulse Ox O2 Delivery O2 Flow Rate FiO2 03/07/17 20:51 93 18 152/71 97 Room Air 03/07/17 19:35 37.2 86 19 167/69 97 Room Air 03/07/17 15:59 35.9 68 20 145/61 99 Room Air Initial VS: Reviewed Head / Eyes: Atraumatic, Normocephalic Neck: Non-tender, Full range of motion Respiratory: Breath sounds normal, Clear to auscultation, No respiratory distress Cardiovascular: Regular rate & rhythm, Heart sounds normal, Intact distal pulses Abdomen / GI: Soft, Non-tender Extremities: Vascular intact, Neuro intact, No swelling, No tenderness Skin: Warm, Dry, No cyanosis Neurologic: Alert, Oriented, Nonfocal General/Constitutional: Awake, Alert, Cooperative Distress / Hydration: Positive: Distress mild Appearance / Presentation: Positive: Obese ENT: Atraumatic, Airway patent, Mucous membranes moist, Tympanic membs NL 3cm horizontal incision to the lower mid line neck. It is clean and dry. No signs of infection or mass. Interpretation & Diagnostics Lab Results Interpretation Result Diagram: 03/07/175 03/07/17 1845 Test 03/07/17 18:45 03/07/17 19:01 03/07/17 19:10 White Blood Count 5.7th/mm3 (3.8-10.1) Red Blood Count 4.56mil/mm3 (3.90-5.20) Hemoglobin 14.6g/dL (12.0-15.6) Hematocrit 42.3% (35.0-46.0) Mean Corpuscular Volume 92.8fL (81-100) Mean Corpuscular Hemoglobin 32.0pg (27.0-35.0) Mean Corpuscular Hemoglobin Concent 34.5% (32.0-37.0) Red Cell Distribution Width 12.8% (12.3-15.4) Platelet Count 132bil/L (150-400) Neutrophils (%) (Auto) 59.9% (40-74) Lymphocytes (%) (Auto) 30.0% (14-46) Monocytes (%) (Auto) 7.7% (4-12) Eosinophils (%) (Auto) 1.9% (0-5) Basophils (%) (Auto) 0.3% (0-3) Sodium Level 141mEq/L (134-144) Potassium Level 4.2mEq/L (3.5-5.2) Chloride Level 104mEq/L (97-108) Carbon Dioxide Level 24mmol/L (18-29) Blood Urea Nitrogen 13mg/dL (8-27) Creatinine 0.63mg/dL (0.57-1.00) Estimat Glomerular Filtration Rate 132mL/min (>59) Glucose Level 108mg/dL (60-99) Calcium Level 10.9mg/dL (8.5-10.1) Magnesium Level 1.7mg/dL (1.6-2.6) Total Bilirubin 0.4mg/dL (0.0-1.2) Aspartate Amino Transf (AST/SGOT) 25U/L (0-50) Alanine Aminotransferase (ALT/SGPT) 23U/L (0-32) Alkaline Phosphatase 94U/L (25-165) Troponin T < 0.010ug/L (0.0-0.011) Total Protein 7.1g/dL (6.4-8.4) Albumin 4.3g/dL (3.4-5.0) Thyroid Stimulating Hormone (TSH) 0.060uIU/mL (0.450-4.500) Free Thyroxine 1.87ng/dL (0.82-1.77) Hold [place] Top Tube Received (Received) Urine Color Yellow (YELLOW) Urine Appearance Clear (CLEAR,HAZY) Urine pH 6.0 (5.0-8.0) Urine Specific [place] 1.025 (1.003-1.035) Urine Protein Negativemg/dL (NEG,TRACE) Urine Glucose (UA) Negativemg/dL (NEGATIVE) Urine Ketones Negativemg/dL (NEGATIVE) Urine Occult Blood Negative (NEGATIVE) Urine Nitrite Negative (NEGATIVE) Urine Bilirubin Negative (NEGATIVE) Urine Urobilinogen Normalmg/dL (NORMAL) Urine Leukocyte Esterase Small (NEGATIVE) Urine RBC 0-2/hpf (0-2) Urine WBC 0-5/hpf (0-5) Urine Epithelial Cells None/hpf (NONE-MOD) Urine Crystals None seen (NONE SEEN) Urine Bacteria Few/hpf (NONE-FEW) Urine Hyaline Casts None/lpf (NONE) Urine Granular Casts None seen (NONE SEEN) Urine Waxy Casts None seen (NONE SEEN) Urine Red Blood Cell Casts None seen (NONE SEEN) Urine White Blood Cell Casts None seen (NONE SEEN) Urine Mucus None seen (None Seen) Urine Trichomonas None seen (NONE SEEN) Urine Yeast None (NONE SEEN) Urinalysis Comment None Urine Culture Reflexed Indicated ECG Interpretation Time: 17:20 Interpreted by: ED physician Normal ECG Interpretation: Normal ECG w/ rate of... (74), Normal sinus rhythm X-Ray Chest Interpretation Chest Xray Interpretation: IMPRESSION: 1. No acute cardiopulmonary disease. Dictated by: Anthony Tolbert M.D. on 03/07/2017 at 17:55 Approved by: Anthony Tolbert M.D. on 03/07/2017 at 17:55 View: Portable, AP & lat Interpretation / Wet Read by: Interpret - Radiologist Re-Eval/Medical Decision Med Decision/Clinical Course No obvious life-threatening causes identified. No obvious infection. Patient is mildly hyperthyroid. Adjustment of her thyroid medication deferred to her primary care doctor or surgeon. She is feeling much better and is agreeable for discharge. Return and follow-up precautions given. Source of Hx: Old records Time of Eval: 20:06 Patient Status: Condition improved Re-Evaluation/Progress Note: Rechecked pt. Discussed lab, imaging results and diagnosis. Informed the pt of the plan to discharge. Pt understands and agrees with plan. F/U instructions and RTER warning given. All questions addressed. Counseled Regarding: Diagnosis, Lab results, Need for follow-up, When/why to return to ED Discharge & Departure Primary Impression: Malaise Disposition: Home Discharge Condition All VS Reviewed: Yes Condition: Stable Additional Instructions: No obvious infection can be identified. Your symptoms may be related to your recent thyroid surgery. Follow-up with your surgeon in regular doctor in the next 2 days. Stay hydrated, return to ER as needed for worsening symptoms. Referrals: Gómez Owens MD (PCP) Scribe Attestation Portions of this note were transcribed by Shahab Paul. I, , personally performed the history, physical exam and medical decision-making;I reviewed and confirmed the accuracy of the information in the transcribed note. Signed by Sheldon Holbrook. 03/07/17 20:30 copies to: Gómez Owens MD, Timothy S DO Mar 07, 2017 16:59 Shahab Paul Mar 07, 2017 17:13
[2017-03-07] MEDS ORDERED: HYDR-4003 PO (17:07)
[2017-03-07] MEDS ORDERED: ALPR0.5T8 PO (17:07)
[2017-03-07] MEDS ORDERED: LEVO75TA36 PO (17:07)
[2017-03-07] MEDS ORDERED: METH5TAB3 PO (17:07)
[2017-03-07] MEDS ORDERED: CHOL10008 PO (17:07)
[2017-03-07] MEDS ORDERED: 0.9% Sodium Chloride 1,000 ML IV ONE (17:11)
[2017-03-07] MEDS ORDERED: HYDROmorphone 0.5 mg/0.5 mL iSecure Syringe IVPUSH PRN (17:15)
[2017-03-07] MEDS ORDERED: Ondansetron 2 mg/mL 2 mL Inj IV PRN (17:15)
--- NOTE | 2017-03-07 17:57 | DRSVH ---
PROCEDURE: X-RAY CHEST, TWO VIEWS ([id number]) INDICATIONS: cough, chills TECHNIQUE: 2 views of the chest were acquired. COMPARISON: [facility], , CHEST 1VW (PORTABLE), 10/31/2013, 19:31. FINDINGS: Surgical changes and devices: None. Lungs and pleura: No pleural effusions or pneumothorax. There is a small peripheral nodular opacity in the left upper lung zone which appears unchanged. No acute consolidation. Mediastinum: Mediastinal contours are unchanged. Heart size is normal. Bones and chest wall: No suspicious bony abnormalities. Soft tissues appear unremarkable. IMPRESSION: 1. No acute cardiopulmonary disease. Dictated by: Anthony Tolbert M.D. on 03/07/2017 at 17:55 Approved by: Anthony Tolbert M.D. on 03/07/2017 at 17:55
[2017-03-07 19:04] LABS: BASOPHILS % (AUTO) 0.3 % (0-3); EOSINOPHILS % (AUTO) 1.9 % (0-5); MONOCYTES % (AUTO) 7.7 % (4-12); Mean Corpuscular Volume 92.8 fL (81-100); NEUTROPHILS % (AUTO) 59.9 % (40-74); Platelet Count 132 bil/L (150-400)
[2017-03-07 19:25] LABS: APPEARANCE,URINE CLEAR (CLEAR,HAZY); COLOR,URINE YELLOW (YELLOW); OCCULT BLOOD,URINE NEGATIVE (NEGATIVE); UROBILINOGEN,URINE NORMAL (NORMAL)
[2017-03-07 19:27] LABS: Magnesium 1.7 mg/dL (1.6-2.6)
[2017-03-07 19:35] VITALS: BP 167/69; PULSE 86; RESP 19; O2SAT 97
[2017-03-07 19:43] LABS: TROPONIN T < 0.010 ug/L (0.0-0.011)
[2017-03-07 20:51] VITALS: BP 152/71; PULSE 93; RESP 18; O2SAT 97
== END 2017-03-07 20:52 | disposition home or self-care (01) ==
LOC: SED 15:57
DX: R53.81 Other malaise (principal); R50.9 Fever, unspecified; R05 Cough; R07.9 Chest pain, unspecified; R51 Headache; F50.89 Other specified eating disorder; G62.9 Polyneuropathy, unspecified; E78.5 Hyperlipidemia, unspecified; I10 Essential (primary) hypertension; E21.3 Hyperparathyroidism, unspecified; F41.9 Anxiety disorder, unspecified; K21.9 Gastro-esophageal reflux disease without esophagitis; F32.9 Major depressive disorder, single episode, unspecified; Z90.89 Acquired absence of other organs; Z87.891 Personal history of nicotine dependence; Z88.8 Allergy status to other drugs, medicaments and biological substances; Z88.1 Allergy status to other antibiotic agents
CPT/HCPCS: 36415; 71020; 80053; 81000; 83735; 84439; 84443; 84484; 85025; 87086; 87088; 93005; 96361; 96374; 96375; 99285; G0463; J1170; J2405; J7030